=== PATIENT | male | born 1980 | race Caucasian/White ===

== ENCOUNTER 2016-12-16 09:10 | Emergency (ER) | payer OTHER ==
[~2016-12-16] VITALS: Ht 172.7 cm; Wt 81.6 kg
[~2016-12-16 09:10] MED LIST: HYDR-3580 PO
[2016-12-16 09:21] VITALS: BP 154/106; PULSE 113; RESP 18; TEMP 98.1; O2SAT 97
--- NOTE | 2016-12-16 10:05 | PD ---
HPI Chief Complaint: Musculoskeletal Complaint Time Seen by Provider: 09:54 Travel History International Travel<30 days: No Contact w/Intl Traveler<30days: No Traveled to known affect area: No History of Present Illness HPI This 36-year-old male is complaining of pain in his left knee. He said the pain started several days ago and was relatively mild. It has become progressively worse. There is no history of direct trauma. There is been no fever or chills. He has no history of gout. He has been able to walk, but certain activities are extremely painful. The pain seems to be greatest at the tibial tubercle and goes to either side of the names. He has not been on any antibiotics recently PFSH Past Medical History Medical History: Denies Significant Hx Influenza Vaccination: No Social History Alcohol Use: Yes (soc) Tobacco Use: Yes (dip) Substance Use: No Allergies-Medications (Allergen,Severity, Reaction): Coded Allergies: No Known Allergies (Unverified , 09/04/14) Reported Meds & Prescriptions Reported Meds & Active Scripts Active No Active Prescriptions or Reported Medications Review of Systems General / Constitutional: No: Fever, Chills Eyes: No: Diploplia Cardiovascular: No: Chest Pain or Discomfort Respiratory: No: Cough Gastrointestinal: No: Nausea, Vomiting Genitourinary: No: Frequency Musculoskeletal: Positive: Myalgias, Arthralgias Physical Exam Narrative GENERAL: Well-developed male SKIN: Focused skin assessment warm/dry. HEAD: Atraumatic. Normocephalic. MUSCULOSKELETAL: No obvious deformities. No clubbing. No cyanosis. No edema. See medication the knee does not reveal any erythema or swelling. There is well localized tenderness over the tibial tubercle. He is able to flex and extend NEUROLOGICAL: Awake and alert. No obvious cranial nerve deficits. Motor grossly within normal limits. Normal speech. PSYCHIATRIC: Appropriate mood and affect; insight and judgment normal. Data Data Last Documented VS Vital Signs Date Time Temp Pulse Resp B/P Pulse Ox O2 Delivery O2 Flow Rate FiO2 12/16/16 09:21 98.1 113 18 154/106 97 Orders Ketorolac Inj (Toradol Inj) (12/16/16 10:15) Knee, Complete (4vws) (12/16/16 10:03) MDM Medical Decision Making Medical Screen Exam Complete: Yes Emergency Medical Condition: Yes Medical Record Reviewed: Yes Differential Diagnosis Differential includes contusion, arthritis, tendinopathy. Narrative Course Site of pain is at the tibial tubercle. X-ray of the knee shows some abnormal calcification in this area. This may represent tendinopathy or avulsion fracture. I discussed the case with orthopedics said they recommend knee immobilizer and partial weightbearing. Office follow-up. Ibuprofen as needed Diagnosis Primary Impression: Tendinopathy Departure Forms: School Release, Tests/Procedures, Work Release Enter return to work date: Dec 19, 2016 Scripts No Active Prescriptions or Reported Meds Disposition: 01 DISCHARGE HOME Condition: Stable Vin Barnett MD Dec 16, 2016 10:05
[2016-12-16] MEDS ORDERED: KETOROLAC TROMETHAMINE 60 MG/2 ML (IM) VIAL IM ONE (10:15)
--- NOTE | 2016-12-16 11:24 | RADRPT ---
EXAM DATE/TIME: 12/16/2016 10:15 [facility] COMPARISON: No previous studies available for comparison. INDICATIONS : Left knee pain, twisted leg while moving in bed. MEDICAL HISTORY : None. SURGICAL HISTORY : None. ENCOUNTER: Initial ACUITY: 1 day PAIN SCORE: 9/10 LOCATION: Left Knee FINDINGS: Four view examination of the left knee demonstrates no evidence of fracture or dislocation. Bony min eralization is normal. The articular surfaces are intact. The suprapatellar soft tissues have a nor mal configuration. CONCLUSION: No acute disease. Les Saldana MD on December 16, 2016 at 11:22 Board Certified Radiologist. This report was verified electronically.
== END 2016-12-16 12:11 | disposition home or self-care (01) ==
LOC: PHEFT 09:10
DX: M67.962 Unspecified disorder of synovium and tendon, left lower leg (principal); R93.6 Abnormal findings on diagnostic imaging of limbs; Z72.0 Tobacco use
CPT/HCPCS: 73564; 96372; 99284; E0113; J1885; L1830

== ENCOUNTER 2017-02-04 09:20 | Emergency (ER) | payer OTHER ==
[~2017-02-04] VITALS: Ht 172.7 cm; Wt 79.5 kg
[2017-02-04 09:21] VITALS: BP 139/95; PULSE 99; RESP 20; TEMP 98.5; O2SAT 98
[2017-02-04] MEDS ORDERED: LISI20TA PO (09:38)
--- NOTE | 2017-02-04 09:38 | PD ---
HPI Chief Complaint: Injury Time Seen by Provider: 09:30 Travel History International Travel<30 days: No Contact w/Intl Traveler<30days: No Traveled to known affect area: No History of Present Illness HPI Patient is a 36-year-old male who presents to emergency room with complaints of acute on chronic left knee pain. Patient reports that he injured his knee 3 months ago, that since then, he has been having increased pain to his left knee. Reports that he has flareup of his left knee pain starting 4 days ago, denies any trauma or fall. Patient reports that he is following up with orthopedic surgeon, reports that the last time this happened, he had a steroid injection to his knee which seemed to help the symptoms. He did call orthopedic surgery today, since they could not get him into the office for appointment, told him to come to the emergency room for evaluation. Patient with no fevers or chills, reports acute on chronic pain. PFSH Past Medical History Hypertension: Yes ?: Not Past Surgical History Surgical History: No Previous Surgery Social History Alcohol Use: Yes (soc) Tobacco Use: Yes (dip) Substance Use: No Allergies-Medications (Allergen,Severity, Reaction): Coded Allergies: No Known Allergies (Unverified , 09/04/14) Reported Meds & Prescriptions Reported Meds & Active Scripts Active Reported Lisinopril-Hctz 20-12.5 Mg Tab 1 Tab PO DAILY Review of Systems General / Constitutional: No: Fever Eyes: No: Visual changes HENT: No: Headaches Cardiovascular: No: Chest Pain or Discomfort Respiratory: No: Shortness of Breath Gastrointestinal: No: Abdominal Pain Genitourinary: No: Dysuria Musculoskeletal: Positive: Limited ROM (left knee), Pain (left knee) Skin: No Rash Neurologic: No: Weakness Psychiatric: No: Depression Endocrine: No: Polydipsia Hematologic/Lymphatic: No: Easy Bruising Physical Exam Narrative GENERAL: Well-nourished, well-developed patient. SKIN: Focused skin assessment warm/dry. HEAD: Normocephalic. EYES: No scleral icterus. No injection or drainage. NECK: Supple, trachea midline. No JVD or lymphadenopathy. CARDIOVASCULAR: Regular rate and rhythm without murmurs, gallops, or rubs. RESPIRATORY: Breath sounds equal bilaterally. No accessory muscle use. GASTROINTESTINAL: Abdomen soft, non-tender, nondistended. MUSCULOSKELETAL: No cyanosis RLE: normal exam LLE: Patient with pain with range of motion to the left knee, mild swelling and edema around left knee, no redness or cellulitis, no obvious open fracture, pulses intact, neurovascular intact BACK: Nontender without obvious deformity. No CVA tenderness. Data Data Last Documented VS Vital Signs Date Time Temp Pulse Resp B/P (MAP) Pulse Ox O2 Delivery O2 Flow Rate FiO2 02/04/17 11:05 17 02/04/17 10:19 81 142/80 (100) 100 Room Air 02/04/17 09:21 98.5 Orders Orders Knee, Ltd (1 Or 2vws) (02/04/17 ) Ketorolac Inj (Toradol Inj) (02/04/17 09:45) Hydromorphone Pf Inj (Dilaudid Pf Inj) (02/04/17 09:45) Ice / Cold Pack PRN (02/04/17 09:42) Crutches (02/04/17 10:35) MDM Medical Decision Making Medical Screen Exam Complete: Yes Emergency Medical Condition: Yes Medical Record Reviewed: Yes Interpretation(s) Vital Signs Date Time Temp Pulse Resp B/P (MAP) Pulse Ox O2 Delivery O2 Flow Rate FiO2 02/04/17 09:21 98.5 99 20 139/95 (110) 98 Room Air Differential Diagnosis acute on chronic left knee pain Narrative Course 36-year-old male who presents to emergency room with acute on chronic left knee pain. Plan to x-ray his left knee. Patient uncomfortable on exam, will administer IM dose of opiods as well as NSAIDS Last Impressions Knee X-Ray 02/04/17 0000 Signed Impressions: Service Date/Time: January 09:50 - CONCLUSION: Fragmentation of the tibial tubercle at the patellar tendon insertion site. Associated soft tissue edema. Differential diagnosis includes acute trauma, infection, and old Lj-Schlatter disease. Rajan Martinez MD Patient feeling much better at this time. Patient with known fragmentation of the tibial tubercle at the patellar tendon insertion site. He will follow-up with orthopedic surgery and will return to emergency as needed Diagnosis Primary Impression: Knee pain, left Qualified Codes: M25.562 - Pain in left knee Patient Instructions: General Instructions, Narcotic given in the ED Departure Forms: Tests/Procedures, Work Release Enter return to work date: Feb 08, 2017 Special Instructions: No heavy lifting or exertional activities until you are seen and cleared by your orthopedic surgeon Med/Other Pt SpecificInfo: Prescription(s) given Scripts Oxycodone-Acetaminophen (Percocet) 5-325 mg Tab 1-2 TAB PO Q6H Y for PAIN, #12 TAB 0 Refills Prov: Lucía Berry DO 02/04/17 Disposition: 01 DISCHARGE HOME Condition: Stable Lucía Berry DO Feb 04, 2017 09:38
[2017-02-04] MEDS ORDERED: KETOROLAC TROMETHAMINE 60 MG/2 ML (IM) VIAL IM ONE (09:45)
[2017-02-04] MEDS ORDERED: HYDROmorphone HCL PF 1 MG/ML VIAL IM ONE (09:45)
[2017-02-04 10:19] VITALS: BP 142/80; PULSE 81; RESP 17; O2SAT 100
--- NOTE | 2017-02-04 10:26 | RADRPT ---
EXAM DATE/TIME: 02/04/2017 09:50 [facility] COMPARISON: No previous studies available for comparison. INDICATIONS : Left knee pain, denies injury MEDICAL HISTORY : None. SURGICAL HISTORY : None. ENCOUNTER: Initial ACUITY: 4 - 6 days PAIN SCORE: 10/10 LOCATION: Left Knee FINDINGS: 2 views of the left knee. There is fragmentation of the tibial tubercle with overlying soft tissue ed cristino. Bone alignment within normal limits. No evidence of joint narrowing. No evidence of joint effusi on. CONCLUSION: Fragmentation of the tibial tubercle at the patellar tendon insertion site. Associated soft tissue ed cristino. Differential diagnosis includes acute trauma, infection, and old Lj-Schlatter disease. Rajan Martinez MD on February 04, 2017 at 10:20 Board Certified Radiologist. This report was verified electronically.
[2017-02-04 11:05] VITALS: RESP 17
[2017-02-04] MEDS ORDERED: PERC5TAB12 PO (11:44)
[2017-02-04] MEDS ORDERED: IBUP-232 PO (11:46)
== END 2017-02-04 12:14 | disposition home or self-care (01) ==
LOC: NEPD 09:20
DX: M25.562 Pain in left knee (principal); G89.29 Other chronic pain; I10 Essential (primary) hypertension; Z72.0 Tobacco use
CPT/HCPCS: 73560; 96372; 99284; E0113; J1170; J1885

== ENCOUNTER 2017-11-30 01:26 | Inpatient (IN) ==
--- NOTE | 2017-11-30 03:08 | ED ---
HPI General Chief Complaint: Chest Pain Stated Complaint: Cardiac Time Seen by Provider: 11/30/17 02:48 Source: patient Limitations: no limitations History of Present Illness HPI narrative: The patient is a 37 year old male who presents to the [facility] emergency department with a history of beginning to have chest tightness at 3 PM today. He reports that it has been constant although waxing and waning in severity. He reports that while his was driving him home from [place], he also had a syncopal episode. He became diaphoretic and then passed out. The patient reports that he woke up to his repeatedly tapping his shoulder. He is unsure how long the syncopal episode lasted. He denies any tongue biting or loss of bowel or bladder control. He reports that he has had intermittent shortness of breath. He reports that he has tingling sensations all over. He reports that prior to arrival again the pain became more severe in his chest around 1 AM. He reports that he has had one episode of nausea and vomiting associated with this. He denies having any prior history of coronary artery disease, DVT, or PE. He does have a history of hypertension and hyperlipidemia. On review of systems otherwise, the patient denies radiation of the chest pain, neck pain, abdominal pain, diarrhea, urinary symptoms, or other neurologic symptoms. Complete Quality Measures for STEMI Alert Patients Duration: constant (mildly constant) Pain location: left chest Quality: other (pushing sensation) Pain radiation: none Relieving factors: nothing Exacerbating factors: nothing Associated symptoms: nausea, vomiting (x1), diaphoresis, dyspnea, syncope and other (dizziness) Related Data Home Medications Medication Instructions Recorded Confirmed lisinopril-hydrochlorothiazide 1 tab PO DAILY 11/30/17 11/30/17 Allergies Allergy/AdvReac Type Severity Reaction Status Date / Time No Known Allergies Allergy Verified 11/30/17 01:34 Review of Systems ROS Unobtainable All other systems reviewed negative except as stated in HPI PMFSH History History Provided By: Patient Medical History Medical History HTN (hypertension) (Acute) Anxiety (Acute) Hyperlipidemia (Acute) Surgical History Surgical History S/P hernia repair (Acute) Family History Family History Other Family history non-contributory Social History Social History Substance History: No History of Abuse Second Hand Smoke Exposure: Yes Smoking Status: Current every day smoker Tobacco Type: Cigarettes and Smokeless Tobacco How Often Do You Have a Drink Containing Alcohol: 2 to 3 times a week Recent Travel in [facility] within the Last 8 Weeks: No Recent Out of Country Travel within the Last 8 Weeks: No Exam Const General: cooperative, no acute distress, well developed and anxious Nutritional Appearance: well nourished Orientation: alert, awake and oriented x3 HENMT Head: normocephalic and atraumatic Nose: no nasal discharge and no epistaxis Mouth: oral mucosae normal and moist mucous membranes Throat: posterior oropharynx normal Eyes Sclera: normal sclerae Pupils: PERRL Neck Neck: no meningeal signs, trachea midline and no JVD Resp Effort & Inspection: no use of accessory muscles Auscultation: clear to auscultation bilaterally Cardio Rate: regular rate Rhythm: regular rhythm Heart Sounds: no gallops, no murmurs and no rubs GI Inspection: non-distended Palpation: soft, no hepatosplenomegaly and nontender Auscultation: normal bowel sounds Back/Spine/Pelvis Back: no CVA tenderness Skin General: dry skin (warm) Neuro General: alert, awake and oriented x3 Cranial Nerves: other (No facial asymmetry.) Speech: speech normal Motor: strength 5/5 throughout and tremor (Slight tremulousness noted with active movements) Sensory Exam: no sensory deficits noted Extrem General: normal to inspection (No calf tenderness on palpation.), no clubbing, no cyanosis and no edema Psych Mood: congruent mood Affect: normal affect Judgment: judgment good Course Consultations Consultation #1: The patient's case including history, pertinent physical examination findings, and laboratory studies were discussed with Dr. Moreno . It was agreed that the patient would be admitted to the hospitalist service. Initial Documented Vital Signs Temperature 97.9 F 11/30/17 01:34 Pulse Rate 91 H 11/30/17 01:34 Respiratory Rate 18 11/30/17 01:34 Blood Pressure 160/96 H 11/30/17 01:34 Pulse Oximetry 98 11/30/17 01:34 Last Documented Vital Signs Temperature 98.0 F 11/30/17 16:00 Pulse Rate 89 11/30/17 17:21 Respiratory Rate 16 11/30/17 16:00 Blood Pressure 137/88 11/30/17 16:00 Pulse Oximetry 98 11/30/17 16:00 Medical Decision Making MDM Narrative Medical decision making narrative: During the course of the patient's emergency department visit, the patient's history, examination, and differential diagnosis were reviewed with the patient. The patient was placed on a youth nutritional monitor with oximetry and frequent blood pressure monitoring. The patient had IV access obtained and blood work sent for analysis. The diagnostic evaluation was started regarding the patient's chest pain and syncope The patient was initially provided normal saline 1 L IV fluid bolus. The patient was given aspirin 324 mg p.o. 1, nitroglycerin sublingual 1. Diagnostic studies are remarkable for a white count of 10.5, platelets 178 with 8.8 monocytes, hemoglobin within normal limits at 14.5, PT PTT unremarkable, d- dimer 0.25 decreasing likelihood of pulmonary embolism in this patient with no other significant risk factors. Chemistry is remarkable for troponin I of less than 0.02, sodium 125 which could certainly explain some of the patient's symptoms, elevated LFTs with an AST of 181, ALT 217 were noted, TSH was noted to be elevated at 5.93. Urine drug screen was negative, alcohol level 78. A chest x-ray showed no acute cardiopulmonary disease. The patient will be admitted to the hospitalist service for chest pain and hyponatremia with an episode of syncope. The patient's results were discussed with the patient, including the plan of care. I explained that further testing and/ or monitoring is indicated based on the patient's history, examination, and/ or laboratory findings. Therefore, I recommended admission for additional evaluation. The patient expressed understanding and was agreeable with this plan. The patient was admitted to the hospital in stable condition and sent to a bed under the care of the [facility] service. Differential Diagnosis Differential Diagnosis: Acute coronary syndrome, versus cardiac arrhythmia, versus orthostasis, versus vasovagal syncope, versus acid reflux, versus anxiety disorder, versus pulmonary embolism Medical Records Medical records reviewed: Yes I reviewed the patient's medical records. Lab Data Lab results reviewed: Yes I reviewed the patient's lab results. Result diagrams: 11/30/17 03:19 11/30/17 09:45 Lab Results 07/24/18 07/24/18 07/24/18 Range/Units 03:19 03:19 03:19 WBC 10.5 (4.0-11.0) th/mm3 RBC 4.55 (4.50-5.90) mil/mm3 Hgb 14.5 (13.0-17.0) gm/dL Hct 40.8 (39.0-51.0) % MCV 89.6 (80.0-100.0) fL MCH 31.9 (27.0-34.0) pg MCHC 35.6 (32.0-36.0) % RDW 13.3 (11.6-17.2) % Plt Count 178 (150-450) th/mm3 MPV 7.7 (7.0-11.0) fL Neut % (Auto) 60.5 (16.0-70.0) % Lymph % (Auto) 30.1 (9.0-44.0) % [place] % (Auto) 8.8 H (0.0-8.0) % Eos % (Auto) 0.2 (0.0-4.0) % Baso % (Auto) 0.4 (0.0-2.0) % Neut # (Auto) 6.3 (1.8-7.7) th/mm3 Lymph # (Auto) 3.2 (1.0-4.8) th/mm3 Dodge # (Auto) 0.9 (0.0-0.9) th/mm3 Eos # (Auto) 0.0 (0.0-0.4) th/mm3 Baso # (Auto) 0.0 (0.0-0.2) th/mm3 WBC Differential . Differential Comment Auto diff final PT (9.8-11.6) sec INR Ratio APTT (24.3-30.1) sec D-Dimer Quant (PE/DVT) 0.25 (0.00-0.50) mg/L FEU Sodium (136-145) meq/L Potassium (3.5-5.1) meq/L Chloride (98-107) meq/L Carbon Dioxide (21.0-32.0) meq/L Anion Gap (5-15) meq/L BUN (7-18) mg/dL Creatinine (0.60-1.30) mg/dL Estimated GFR (>89) mL/min Random Glucose (74-106) mg/dL Calcium (8.5-10.1) mg/dL Total Bilirubin (0.2-1.0) mg/dL AST (15-37) U/L ALT (12-78) U/L Alkaline Phosphatase (45-117) U/L Total Creatine Kinase (39-308) U/L CK-MB (CK-2) (0.5-3.6) ng/mL Troponin I (0.02-0.05) ng/mL Total Protein (6.4-8.2) g/dL Albumin (3.4-5.0) g/dL Lipase 451 H (73-393) U/L TSH (0.358-3.740) uIU/mL Free T4 (0.76-1.46) ng/dL Free T3 (2.18-3.98) pg/mL Urine Opiates Screen (Neg) Ur Barbiturates Screen (Neg) Ur Amphetamines Screen (Neg) U Benzodiazepines Scrn (Neg) Urine Cocaine Screen (Neg) U Cannabinoids Screen (Neg) Serum Alcohol (0-5) mg/dL 11/30/17 11/30/17 11/30/17 Range/Units 03:19 03:19 06:28 WBC (4.0-11.0) th/mm3 RBC (4.50-5.90) mil/mm3 Hgb (13.0-17.0) gm/dL Hct (39.0-51.0) % MCV (80.0-100.0) fL MCH (27.0-34.0) pg MCHC (32.0-36.0) % RDW (11.6-17.2) % Plt Count (150-450) th/mm3 MPV (7.0-11.0) fL Neut % (Auto) (16.0-70.0) % Lymph % (Auto) (9.0-44.0) % Dodge % (Auto) (0.0-8.0) % Eos % (Auto) (0.0-4.0) % Baso % (Auto) (0.0-2.0) % Neut # (Auto) (1.8-7.7) th/mm3 Lymph # (Auto) (1.0-4.8) th/mm3 Dodge # (Auto) (0.0-0.9) th/mm3 Eos # (Auto) (0.0-0.4) th/mm3 Baso # (Auto) (0.0-0.2) th/mm3 WBC Differential Differential Comment PT 10.7 (9.8-11.6) sec INR 1.1 Ratio APTT 23.1 L (24.3-30.1) sec D-Dimer Quant (PE/DVT) (0.00-0.50) mg/L FEU Sodium 125 L (136-145) meq/L Potassium 3.5 (3.5-5.1) meq/L Chloride 84 L (98-107) meq/L Carbon Dioxide 27.3 (21.0-32.0) meq/L Anion Gap 14 (5-15) meq/L BUN 8 (7-18) mg/dL Creatinine 0.95 (0.60-1.30) mg/dL Estimated GFR 88 L (>89) mL/min Random Glucose 93 (74-106) mg/dL Calcium 9.1 (8.5-10.1) mg/dL Total Bilirubin 1.4 H (0.2-1.0) mg/dL AST 181 H (15-37) U/L ALT 217 H (12-78) U/L Alkaline Phosphatase 79 (45-117) U/L Total Creatine Kinase 272 (39-308) U/L CK-MB (CK-2) 1.0 (0.5-3.6) ng/mL Troponin I Less than 0.02 L (0.02-0.05) ng/mL Total Protein 8.9 H (6.4-8.2) g/dL Albumin 4.3 (3.4-5.0) g/dL Lipase (73-393) U/L TSH 5.930 H (0.358-3.740) uIU/mL Free T4 1.07 (0.76-1.46) ng/dL Free T3 3.94 (2.18-3.98) pg/mL Urine Opiates Screen Neg (Neg) Ur Barbiturates Screen Neg (Neg) Ur Amphetamines Screen Neg (Neg) U Benzodiazepines Scrn Neg (Neg) Urine Cocaine Screen Neg (Neg) U Cannabinoids Screen Neg (Neg) Serum Alcohol 78 H (0-5) mg/dL 11/30/17 11/30/17 11/30/17 Range/Units 09:45 09:45 16:34 WBC (4.0-11.0) th/mm3 RBC (4.50-5.90) mil/mm3 Hgb (13.0-17.0) gm/dL Hct (39.0-51.0) % MCV (80.0-100.0) fL MCH (27.0-34.0) pg MCHC (32.0-36.0) % RDW (11.6-17.2) % Plt Count (150-450) th/mm3 MPV (7.0-11.0) fL Neut % (Auto) (16.0-70.0) % Lymph % (Auto) (9.0-44.0) % Dodge % (Auto) (0.0-8.0) % Eos % (Auto) (0.0-4.0) % Baso % (Auto) (0.0-2.0) % Neut # (Auto) (1.8-7.7) th/mm3 Lymph # (Auto) (1.0-4.8) th/mm3 Dodge # (Auto) (0.0-0.9) th/mm3 Eos # (Auto) (0.0-0.4) th/mm3 Baso # (Auto) (0.0-0.2) th/mm3 WBC Differential Differential Comment PT (9.8-11.6) sec INR Ratio APTT (24.3-30.1) sec D-Dimer Quant (PE/DVT) (0.00-0.50) mg/L FEU Sodium 133 L (136-145) meq/L Potassium 3.9 (3.5-5.1) meq/L Chloride 94 L D (98-107) meq/L Carbon Dioxide 27.4 (21.0-32.0) meq/L Anion Gap 12 (5-15) meq/L BUN 9 (7-18) mg/dL Creatinine 1.02 (0.60-1.30) mg/dL Estimated GFR 81 L (>89) mL/min Random Glucose 97 (74-106) mg/dL Calcium 8.8 (8.5-10.1) mg/dL Total Bilirubin (0.2-1.0) mg/dL AST (15-37) U/L ALT (12-78) U/L Alkaline Phosphatase (45-117) U/L Total Creatine Kinase 258 251 (39-308) U/L CK-MB (CK-2) (0.5-3.6) ng/mL Troponin I Less than 0.02 L Less than 0.02 L (0.02-0.05) ng/mL Total Protein (6.4-8.2) g/dL Albumin (3.4-5.0) g/dL Lipase (73-393) U/L TSH (0.358-3.740) uIU/mL Free T4 (0.76-1.46) ng/dL Free T3 (2.18-3.98) pg/mL Urine Opiates Screen (Neg) Ur Barbiturates Screen (Neg) Ur Amphetamines Screen (Neg) U Benzodiazepines Scrn (Neg) Urine Cocaine Screen (Neg) U Cannabinoids Screen (Neg) Serum Alcohol (0-5) mg/dL Imaging Data Radiologist's impression: Carotid Doppler Study 11/30/17 00:00 CONCLUSION: 1. Minimal plaque with no evidence of stenosis in the internal carotid arteries. 2. Mild elevation of the right external carotid artery velocity of questionable clinical significance. Myocardial Perfusion Scan Nuc Med 11/30/17 00:00 CONCLUSION: 1. Normal wall motion and calculated ejection fraction. 2. No fixed or reversible wall defect to suggest ischemia or infarction. Chest X-Ray 11/30/17 02:56 CONCLUSION: No acute cardiopulmonary process. ECG Data Attestation: I personally reviewed and interpreted this ECG as follows: Interpretation: The patient had an EKG done on arrival that shows a sinus rhythm heart rate of 94, QRS duration 110 ms, QTC [address] segment elevation or depression. T waves are inverted in V1. Discharge Plan Discharge Disposition Patient Disposition: 30 Still Patient Discharge Details Diagnosis: Syncope, Hyponatremia, Chest pain, rule out acute myocardial infarction Physicians Team ED Provider: Ashly Schwartz Primary Care Provider: Primary Care Amanda Jennings Attending Provider: Fadi Singleton Status ED Status: Left Department Discharge Information Discharge Date/Time: 11/30/17 14:03
[2017-11-30 03:36] LABS: Baso % (Auto) 0.4 % (0.0-2.0); Eos % (Auto) 0.2 % (0.0-4.0); Hematocrit 40.8 % (39.0-51.0); Hemoglobin 14.5 gm/dL (13.0-17.0); Lymph # (Auto) 3.2 th/mm3 (1.0-4.8); Lymph % (Auto) 30.1 % (9.0-44.0); Mean Corpuscular HGB Conc 35.6 % (32.0-36.0); Mean Corpuscular Hemoglobin 31.9 pg (27.0-34.0); Mean Corpuscular Volume 89.6 fL (80.0-100.0); Mean Platelet Volume 7.7 fL (7.0-11.0); Mono # (Auto) 0.9 th/mm3 (0.0-0.9); Mono % (Auto) 8.8 % (0.0-8.0); Neut # (Auto) 6.3 th/mm3 (1.8-7.7); Neut % (Auto) 60.5 % (16.0-70.0); Platelet Count 178 th/mm3 (150-450); Red Blood Count 4.55 mil/mm3 (4.50-5.90); Red Cell Distribution Width 13.3 % (11.6-17.2); White Blood Count 10.5 th/mm3 (4.0-11.0)
[2017-11-30 03:50] LABS: Activated Partial Thrombo Time 23.1 sec (24.3-30.1); INR 1.1 Ratio; Prothrombin Time 10.7 sec (9.8-11.6)
[2017-11-30 03:56] LABS: Alanine Aminotransferase 217 U/L (12-78); Albumin 4.3 g/dL (3.4-5.0); Anion Gap 14 meq/L (5-15); Aspartate Aminotransferase 181 U/L (15-37); Blood Urea Nitrogen 8 mg/dL (7-18); Calcium 9.1 mg/dL (8.5-10.1); Carbon Dioxide 27.3 meq/L (21.0-32.0); Chloride 84 meq/L (98-107); Glomerular Filtration Rate 88 mL/min (>89); Glucose,Random 93 mg/dL (74-106); Potassium 3.5 meq/L (3.5-5.1); Sodium 125 meq/L (136-145)
[2017-11-30 04:00] LABS: Alkaline Phosphatase 79 U/L (45-117); Creatine Kinase 272 U/L (39-308); Total Protein 8.9 g/dL (6.4-8.2)
--- NOTE | 2017-11-30 04:03 | XR ---
EXAM DATE: 11/30/2017 3:29 AM EDT AGE/SEX: 37 years / Male INDICATIONS: Chest pain. CLINICAL DATA: This is the patient's initial encounter. Patient reports that signs and symptoms have been present for 1 day and indicates a pain score of 5/10. MEDICAL/SURGICAL HISTORY: . High blood pressure. None. COMPARISON: No prior exams available for comparison. FINDINGS: A single AP view of the chest demonstrates the lungs to be symmetrically aerated without evidence of mass, infiltrate or effusion. The cardiomediastinal contours are unremarkable. Osseous structures a re intact. CONCLUSION: No acute cardiopulmonary process. Electronically signed by: Marv Mandel MD 11/30/2017 4:02 AM EDT
[2017-11-30] MEDS ORDERED: Sod Chloride 0.9% Inj 1,000 ML IV.SIG ONE (04:28)
[2017-11-30 04:56] LABS: Alcohol 78 mg/dL (0-5)
[2017-11-30] MEDS ORDERED: Bisacodyl 10 MG Supp RECTAL PRN (05:24)
[2017-11-30] MEDS ORDERED: Temazepam 15 MG Capsule PO PRN (05:24)
[2017-11-30] MEDS ORDERED: Acetaminophen 325 MG Tablet PO PRN (05:24)
[2017-11-30 05:49] LABS: Free T4 (Free Thyroxine) 1.07 ng/dL (0.76-1.46); Triiodothyronine (T3) Free 3.94 pg/mL (2.18-3.98)
[2017-11-30] MEDS: Sod Chloride 0.9% Inj 1,000 ML IV.CONT SCH ×2 (06:02→17:10)
[2017-11-30 06:44] LABS: Amphetamine Screen,Urine Neg (Neg); Barbiturate Screen,Urine Neg (Neg); Cannabinoid Screen,Urine Neg (Neg); Cocaine Screen,Urine Neg (Neg)
[2017-11-30 06:45] LABS: Opiate Screen,Urine Neg (Neg)
--- NOTE | 2017-11-30 09:24 | US ---
EXAM DATE: 11/30/2017 8:59 AM EDT AGE/SEX: 37 years / Male INDICATIONS: Syncope. CLINICAL DATA: This is the patient's initial encounter. Patient reports that signs and symptoms have been present for 1 day and indicates a pain score of 4/10. MEDICAL/SURGICAL HISTORY: Hypertension. Anxiety. Hyperlipidemia. . Hernia repair. COMPARISON: No prior exams available for comparison. VELOCITY PARAMETERS: ICA/CCA Ratio: Right 0.8 , Left 0.5 ICA: Right 71 cm/sec, Left 59 cm/sec CCA: Right 94 cm/sec, Left 114 cm/sec ECA: Right 145 cm/sec, Left 96 cm/sec Vertebral: Right 38 cm/sec antegrade, Left 40 cm/sec antegrade FINDINGS: Right Carotid: Minimal plaque is present..The waveforms are within normal limits. Left Carotid: Minimal plaque is present.. The waveforms are within normal limits. Other: None. CONCLUSION: 1. Minimal plaque with no evidence of stenosis in the internal carotid arteries. 2. Mild elevation of the right external carotid artery velocity of questionable clinical significanc e. Electronically signed by: Jarrett Shaw MD 11/30/2017 9:22 AM EDT
--- NOTE | 2017-11-30 10:01 | ECG ---
Date Performed: 11/30/2017 Time Performed: 01:31:36 PTAGE: 37 years EKG: Sinus rhythm NORMAL ECG INTERPRETATION BASED ON A DEFAULT AGE OF 38 YEARS NO PREVIOUS TRACING DOCTOR: Micheal Sandhu Interpretating Date/Time 11/30/2017 10:00:34
[2017-11-30 11:04] LABS: Carbon Dioxide 27.4 meq/L (21.0-32.0); Potassium 3.9 meq/L (3.5-5.1)
[2017-11-30 11:05] LABS: Calcium 8.8 mg/dL (8.5-10.1)
[2017-11-30 11:08] LABS: Creatine Kinase 258 U/L (39-308)
--- NOTE | 2017-11-30 11:24 | ECG ---
Date Performed: 11/30/2017 Time Performed: 09:50:16 PTAGE: 37 years EKG: Sinus rhythm NORMAL ECG PREVIOUS TRACING : 11/30/2017 01.31 DOCTOR: Micheal Sandhu Interpretating Date/Time 11/30/2017 11:23:57
[2017-11-30] MEDS: Senna/Docusate Sodium 8.6/50 MG Tablet PO SCH ×2 (11:51→20:47)
[2017-11-30] MEDS ORDERED: LORazepam 1 MG Tablet PO PRN (12:35)
[2017-11-30] MEDS ORDERED: Haloperidol Inj 5 MG/ML Ampul IV.PUSH PRN (12:35)
--- NOTE | 2017-11-30 12:53 | P.HP ---
History of Present Illness Primary Care Physician: No Primary Care Physician History of Present Illness: This is a 37-year-old male who was brought into the emergency department because of chest tightness. Started last night around 7 pm when he passed out in the car. His was driving home from their son's birthday green party. Suddenly he became diaphoretic and passed out duration not known. No confusion, tongue biting or incontinence but became nauseous and vomited once. He also developed mild constant chest tightness without radiation. Denies shortness of breath, leg pain and swelling. He then went to bed but continued to have chest pain and diaphoresis. He also felt his heart racing and was weak. He was also starting to feel numb. Persistence of chest discomfort prompted him to present to the emergency room at 1 AM. Denies history of CAD, DVT or PE. He exercises rides his bike 15 minutes at a time without any symptoms. States he cannot run because of knee tendinitis. At this time, he feels anxious and tremulous. Denies hallucinations. Initially states he drinks alcohol socially but when he was told about abnormal liver function tests he admits he drinks 2 beers almost every day. All other systems reviewed negative Review of Systems All other systems reviewed negative except as stated in HPI PMFSH - History History Provided By: Patient - Medical History Medical History: Medical History (Last Updated 11/30/17 @ 12:48 by Fadi Singleton MD) HTN (hypertension) Anxiety - Surgical History Surgical History: Surgical History (Last Reviewed 11/30/17 @ 04:38 by Ashly Schwartz MD) S/P hernia repair - Family History Family History: Family History (Last Updated 11/30/17 @ 12:49 by Fadi Singleton MD) Other Family history non-contributory - Tobacco History Second Hand Smoke Exposure: Yes Tobacco Use In Past 30 Days: Yes Smoking Status: Current every day smoker Tobacco Type: Cigarettes, Smokeless Tobacco - Alcohol History How Often Do You Have a Drink Containing Alcohol: 2 to 3 times a week - Substance Use History Substance History: No History of Abuse - Travel History Recent Travel in the [facility] Within the Last 8 Weeks: No Recent Travel Out of the Country Within the Last 8 Weeks: No - Immunization History Tetanus Immunization: <5 Years Hx Influenza Vaccine This Season: No Medications and Allergies Active Medications: Active Medications Acetaminophen (Tylenol) 650 mg PO Q4H PRN PRN Reason: Temp > 100.4 Al Hydroxide/Mg Hydroxide (Milk Of Magnesia Liq) 30 ml PO Q12H PRN PRN Reason: Mild Constipation Bisacodyl (Dulcolax Supp) 10 mg RECTAL DAILY PRN PRN Reason: SEVERE CONSITIPATION Sodium Chloride (Ns Inj) 1,000 mls @ 100 mls/hr IV.CONT .Q10H [facility] Last Admin: 11/30/17 06:02 Dose: 100 mls/hr Lactulose (Lactulose Liq) 30 ml PO DAILY PRN PRN Reason: SEVERE CONSITIPATION Ondansetron HCl (Zofran Odt) 4 mg PO Q6H PRN PRN Reason: NAUSEA OR VOMITING Senna/Docusate Sodium (Kenia-Colace) 1 tab PO BID [facility] Last Admin: 11/30/17 11:51 Dose: Not Given Sennosides (Senokot) 17.2 mg PO Q12H PRN PRN Reason: Moderate Constipation Sodium Chloride (Ns Flush) 2 ml IV.FLUSH UNSCH PRN PRN Reason: FLUSH AFTER USING IV ACCESS Temazepam (Restoril) 15 mg PO HS PRN PRN Reason: INSOMNIA Allergies Allergy/AdvReac Type Severity Reaction Status Date / Time No Known Allergies Allergy Verified 11/30/17 01:34 Home Medications Medication Instructions Recorded Confirmed Type No Known Home Medications 11/30/17 11/30/17 History Exam Vital signs: Vital Signs 11/30/17 01:34 11/30/17 03:13 11/30/17 03:27 Temperature 97.9 F Pulse Rate 91 H 78 Respiratory Rate 18 20 Blood Pressure 160/96 H 159/94 H Pulse Oximetry 98 96 96 11/30/17 04:52 11/30/17 05:20 11/30/17 07:26 Temperature Pulse Rate 79 72 81 Respiratory Rate 18 20 18 Blood Pressure 142/84 H 143/76 H 163/89 H Pulse Oximetry 96 98 Intake & Output 11/29/17 11/30/17 11/30/17 18:59 06:59 18:59 Intake Total 1000 / 1000 Balance 1000 / 1000 Weight 79.379 kg Intake: IV 1000 / 1000 NS Inj 1,000 ML @ Wide Open IV. 1000 / 1000 SIG BOLUS ONE Rx#:[id number] Narrative: GENERAL: Well developed and well nourished. In no distress SKIN: Warm and dry. HEAD: Atraumatic. Normocephalic. EYES: Pupils equal and round. No scleral icterus. No injection or drainage. ENT: No nasal bleeding or discharge. Mucous membranes pink and moist. NECK: Trachea midline. No JVD. CARDIOVASCULAR: Regular rate and rhythm. RESPIRATORY: No accessory muscle use. Clear to auscultation. Breath sounds equal bilaterally. GASTROINTESTINAL: Abdomen soft, non-tender, nondistended. MUSCULOSKELETAL: Extremities without clubbing, cyanosis, or edema. No obvious deformities. NEUROLOGICAL: Awake and alert. No obvious cranial nerve deficits. Motor grossly within normal limits. Five out of 5 muscle strength in the arms and legs. Normal speech. Tremors noted PSYCHIATRIC: Anxious Results - Labs CBC & Chem 7: 11/30/17 03:19 11/30/17 09:45 Labs: Laboratory Results - last 24 hr 11/30/17 11/30/17 11/30/17 03:19 03:19 03:19 WBC 10.5 RBC 4.55 Hgb 14.5 Hct 40.8 MCV 89.6 MCH 31.9 MCHC 35.6 RDW 13.3 Plt Count 178 MPV 7.7 Neut % (Auto) 60.5 Lymph % (Auto) 30.1 [place] % (Auto) 8.8 H Eos % (Auto) 0.2 Baso % (Auto) 0.4 Neut # (Auto) 6.3 Lymph # (Auto) 3.2 [place] # (Auto) 0.9 Eos # (Auto) 0.0 Baso # (Auto) 0.0 WBC Differential . Differential Comment Auto diff final PT INR APTT D-Dimer Quant (PE/DVT) 0.25 Sodium Potassium Chloride Carbon Dioxide Anion Gap BUN Creatinine Estimated GFR Random Glucose Calcium Total Bilirubin AST ALT Alkaline Phosphatase Total Creatine Kinase CK-MB (CK-2) Troponin I Total Protein Albumin Lipase 451 H TSH Free T4 Free T3 Urine Opiates Screen Ur Barbiturates Screen Ur Amphetamines Screen U Benzodiazepines Scrn Urine Cocaine Screen U Cannabinoids Screen Serum Alcohol 11/30/17 11/30/17 11/30/17 03:19 03:19 06:28 WBC RBC Hgb Hct MCV MCH MCHC RDW Plt Count MPV Neut % (Auto) Lymph % (Auto) [place] % (Auto) Eos % (Auto) Baso % (Auto) Neut # (Auto) Lymph # (Auto) [place] # (Auto) Eos # (Auto) Baso # (Auto) WBC Differential Differential Comment PT 10.7 INR 1.1 APTT 23.1 L D-Dimer Quant (PE/DVT) Sodium 125 L Potassium 3.5 Chloride 84 L Carbon Dioxide 27.3 Anion Gap 14 BUN 8 Creatinine 0.95 Estimated GFR 88 L Random Glucose 93 Calcium 9.1 Total Bilirubin 1.4 H AST 181 H ALT 217 H Alkaline Phosphatase 79 Total Creatine Kinase 272 CK-MB (CK-2) 1.0 Troponin I Less than 0.02 L Total Protein 8.9 H Albumin 4.3 Lipase TSH 5.930 H Free T4 1.07 Free T3 3.94 Urine Opiates Screen Neg Ur Barbiturates Screen Neg Ur Amphetamines Screen Neg U Benzodiazepines Scrn Neg Urine Cocaine Screen Neg U Cannabinoids Screen Neg Serum Alcohol 78 H 11/30/17 11/30/17 09:45 09:45 WBC RBC Hgb Hct MCV MCH MCHC RDW Plt Count MPV Neut % (Auto) Lymph % (Auto) [place] % (Auto) Eos % (Auto) Baso % (Auto) Neut # (Auto) Lymph # (Auto) [place] # (Auto) Eos # (Auto) Baso # (Auto) WBC Differential Differential Comment PT INR APTT D-Dimer Quant (PE/DVT) Sodium 133 L Potassium 3.9 Chloride 94 L D Carbon Dioxide 27.4 Anion Gap 12 BUN 9 Creatinine 1.02 Estimated GFR 81 L Random Glucose 97 Calcium 8.8 Total Bilirubin AST ALT Alkaline Phosphatase Total Creatine Kinase 258 CK-MB (CK-2) Troponin I Less than 0.02 L Total Protein Albumin Lipase TSH Free T4 Free T3 Urine Opiates Screen Ur Barbiturates Screen Ur Amphetamines Screen U Benzodiazepines Scrn Urine Cocaine Screen U Cannabinoids Screen Serum Alcohol - Imaging Impressions Carotid Doppler Study 11/30/17 00:00 CONCLUSION: 1. Minimal plaque with no evidence of stenosis in the internal carotid arteries. 2. Mild elevation of the right external carotid artery velocity of questionable clinical significance. Chest X-Ray 11/30/17 02:56 CONCLUSION: No acute cardiopulmonary process. Caprini VTE Risk Assessment Caprini VTE Risk Assessment: No/Low Risk (score <= 1) Caprini Risk Assessment Model: Point Value = 1 Point Value = 2 Point Value = 3 Point Value = 5 Age 41-60 Minor surgery BMI > 25 kg/m2 Swollen legs Varicose veins or History of unexplained or recurrent spontaneous Oral contraceptives or hormone replacement Sepsis (< 1 month) Serious lung disease, including pneumonia (< 1 month) Abnormal pulmonary function Acute myocardial infarction Congestive heart failure (< 1 month) History of inflammatory bowel disease Medical patient at bed rest Age 61-74 Arthroscopic surgery Major open surgery (> 45 min) Laparoscopic surgery (> 45 min) Malignancy Confined to bed (> 72 hours) Immobilizing plaster cast Central venous access Age >= 75 History of VTE Family history of VTE Factor V Leiden Prothrombin [id number] Lupus anticoagulant Anticardiolipin antibodies Elevated serum homocysteine Heparin-induced thrombocytopenia Other congenital or acquired thrombophilia Stroke (< 1 month) Elective arthroplasty Hip, pelvis, or leg fracture Acute spinal cord injury (< 1 month) Prophylaxis Regimen: Total Risk Factor Score Risk Level Prophylaxis Regimen 0-1 Low Early ambulation 2 Moderate Order ONE of the following: *Sequential Compression Device (SCD) *Heparin 5000 units SQ BID 3-4 Higher Order ONE of the following medications: *Heparin 5000 units SQ TID *Enoxaparin/Lovenox 40 mg SQ daily (WT < 150 kg, CrCl > 30 mL/min) *Enoxaparin/Lovenox 30 mg SQ daily (WT < 150 kg, CrCl > 10-29 mL/min) *Enoxaparin/Lovenox 30 mg SQ BID (WT < 150 kg, CrCl > 30 mL/min) AND/OR *Sequential Compression Device (SCD) 5 or more Highest Order ONE of the following medications: *Heparin 5000 units SQ TID (Preferred with Epidurals) *Enoxaparin/Lovenox 40 mg SQ daily (WT < 150 kg, CrCl > 30 mL/min) *Enoxaparin/Lovenox 30 mg SQ daily (WT < 150 kg, CrCl > 10-29 mL/min) *Enoxaparin/Lovenox 30 mg SQ BID (WT < 150 kg, CrCl > 30 mL/min) AND *Sequential Compression Device (SCD) Assessment and Plan - Plan This is a 37-year-old male who was brought into the emergency department because of chest tightness. Started last night around 7 pm when he passed out in the car. His was driving home from their son's birthday green party. Suddenly he became diaphoretic and passed out duration not known. No confusion, tongue biting or incontinence but became nauseous and vomited once. He also developed mild constant chest tightness without radiation. Denies shortness of breath, leg pain and swelling. He then went to bed but continued to have chest pain and diaphoresis. He also felt his heart racing and was weak. He was also starting to feel numb. Persistence of chest discomfort prompted him to present to the emergency room at 1 AM. Syncope likely from alcohol intoxication. Patient with alcohol level of 78 with last intake 8 hrs prior. he passed out one hour after imbibing. At this time he is neurologically intact. Continue to monitor on telemetry, neuro checks and follow-up echocardiogram. Carotid ultrasound was unremarkable. CP this is atypical. He is ruling out for NV. EKG tracing interpreted by me with sinus rhythm with no acute ST-T changes. He received aspirin because of risk factors he will undergo stress test. Elevated lipase likely reason for chest pain. He denies chest pain at this time. No abdominal tenderness. Will monitor alcohol abuse with hyponatremia and abnormal liver function tests. Patient has been counseled. CIWA protocol. States he will seek help outpatient. DVT prophylaxis with SCD Discharge Planning: home in 1-2 days
[2017-11-30] MEDS ORDERED: Regadenoson Inj 0.4 MG/5 ML Syringe IV.PUSH ONE (15:18)
--- NOTE | 2017-11-30 16:36 | NM ---
EXAM DATE: 11/30/2017 4:30 PM EDT AGE/SEX: 37 years / Male INDICATIONS:Angina. . Mid chest pain with a syncopal episode. CLINICAL DATA: This is the patient's initial encounter. Patient reports that signs and symptoms have been present for 1 day and indicates a pain score of 8/10. MEDICAL/SURGICAL HISTORY: Hypertension. Inguinal hernia repair. COMPARISON: No prior exams available for comparison. No external comparison. DOSE: 8.2 mCi Tc 99m Myoview at rest 27.5 mCi [id number] at stress 0.4 mg Lexiscan STRESS SYMPTOMS: None. EJECTION FRACTION: >70 % TECHNIQUE: The patient underwent pharmacologic stress with infusion of prescribed dose. Continuous ECG tracing was monitored during stress. Gated SPECT imaging was performed after stress and conventi onal SPECT imaging was performed at rest. The examination was performed on a SPECT/CT scanner, both attenuation and non-corrected datasets were reviewed. FINDINGS: Distribution: The maximum perfused segment at stress is in the anterior lateral wall. Perfusion Study: The pattern of perfusion at stress is within normal limits. There is a summed st ress score of 0. Gated Study: There are intact wall motion and wall thickening without hypokinetic or dyskinetic segm ents. The ejection fraction is calculated at >70%. RISK CATEGORY: Low (<1% Annual Motality Rate) CONCLUSION: 1. Normal wall motion and calculated ejection fraction. 2. No fixed or reversible wall defect to suggest ischemia or infarction. Electronically signed by: Jarrett Shaw MD 11/30/2017 4:35 PM EDT
[2017-11-30 17:38] LABS: Creatine Kinase 251 U/L (39-308)
[2017-12-01] MEDS: Sod Chloride 0.9% Inj 1,000 ML IV.CONT SCH ×2 (05:47→19:30)
[2017-12-01 08:52] LABS: Baso % (Auto) 0.4 % (0.0-2.0); Eos % (Auto) 0.7 % (0.0-4.0); Hematocrit 37.2 % (39.0-51.0); Hemoglobin 12.8 gm/dL (13.0-17.0); Mean Corpuscular HGB Conc 34.4 % (32.0-36.0); Mean Corpuscular Hemoglobin 31.8 pg (27.0-34.0); Mean Corpuscular Volume 92.5 fL (80.0-100.0); Mean Platelet Volume 7.9 fL (7.0-11.0); Mono # (Auto) 0.7 th/mm3 (0.0-0.9); Mono % (Auto) 12.6 % (0.0-8.0); Neut # (Auto) 2.5 th/mm3 (1.8-7.7); Neut % (Auto) 47.3 % (16.0-70.0); Platelet Count 147 th/mm3 (150-450); Red Blood Count 4.02 mil/mm3 (4.50-5.90); Red Cell Distribution Width 13.2 % (11.6-17.2); White Blood Count 5.2 th/mm3 (4.0-11.0)
[2017-12-01] MEDS: Folic Acid 1 MG Tablet PO SCH (08:59)
[2017-12-01] MEDS: Senna/Docusate Sodium 8.6/50 MG Tablet PO SCH ×2 (08:59→20:08)
[2017-12-01] MEDS: Multivitamin/Minerals Therapeutic Tablet PO SCH (08:59)
[2017-12-01 09:20] LABS: Albumin 3.5 g/dL (3.4-5.0); Anion Gap 11 meq/L (5-15); Aspartate Aminotransferase 169 U/L (15-37); Blood Urea Nitrogen 14 mg/dL (7-18); Calcium 8.6 mg/dL (8.5-10.1); Carbon Dioxide 26.5 meq/L (21.0-32.0); Chloride 99 meq/L (98-107); Glomerular Filtration Rate 69 mL/min (>89); Glucose,Random 91 mg/dL (74-106); Lipase 681 U/L (73-393); Potassium 3.6 meq/L (3.5-5.1); Sodium 136 meq/L (136-145)
[2017-12-01 09:21] LABS: Alanine Aminotransferase 163 U/L (12-78)
[2017-12-01 09:27] LABS: Alkaline Phosphatase 69 U/L (45-117); Total Protein 7.6 g/dL (6.4-8.2)
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
[2017-12-01] MEDS ORDERED: Non-Formulary Drug (Lisinopril-Hydrochlorothiazide [Lisinopril-Hydrochlorothiazide] 1 TAB) PO SCH (09:30)
[2017-12-01] MEDS: Lisinopril 10 MG Tablet PO SCH (10:41)
[2017-12-01] MEDS ORDERED: Haloperidol Inj 5 MG/ML Ampul IM ONE (14:07)
--- NOTE | 2017-12-01 15:42 | P.CONPSY ---
Provisional Diagnosis Admission Date: November 30, 2017 12:51 Mingo I.: 1. Delirium tremens Rule out delirium from other causes Mingo II.: Deferred History of Present Illness Service: Psychiatry Consult date: 12/01/17 Requesting Physician: Fadi Singleton Reason for Consult: Auditory hallucinations and agitation Primary Care Provider: No Primary Care Physician History of Present Illness: Mr. Echeverria is a 37 year-old male with no known past psychiatric history who presented initially on 11/30 with chest pain. He was placed in observation in the CDU for chest-pain rule-out. His course was uneventful until this afternoon apparently when he became acutely agitated, paranoid and began hallucinating. Patient's alcohol level on presentation here was 78. Reviewing the electronic medical record, I see no previous psychiatric contact within our system. Patient seen and examined. Chart reviewed. I note that Dr. Singleton has initiated a Suarez Act. Case discussed with nurse in CDU and with Dr. Singleton. Patient has received 2mg Ativan IV and 5mg Haldol IM about 1 hour prior to my evaluation, and patient has reportedly calmed significantly. Patient's is at the bedside and remains through the interview with patient's permission. On my examination today, the patient is mildly tremulous and diaphoretic. He is hypertensive and tachycardic. Mental status testing indicates some subtle evidence of disorientation and inattention, and the patient does seem distracted on exam. He remains paranoid and a little internally stimulated. He alludes to 3 men who he thought were after him before I came. He tells me that he was "feeling excellent" before this afternoon. I can elicit no mood symptoms, except that patient has been sleeping poorly in the hospital setting. He complains of anxiety and says that he feels easily frustrated. He denies any suicidal or homicidal ideation, intent or plan at this time. Remainder of the psychiatric ROS is negative. No acute physical complaints except that patient does feel a little bit unsteady, reportedly on account of the medications he has received. Past psychiatric history: Patient denies a history of psychiatric diagnosis. He denies a history of inpatient or outpatient psychiatric treatment. He denies a history of suicide attempts. Family history: The patient denies a family history of serious mental illness or suicide. Chemical dependency history: The patient says that he drinks 2-3 beers a day. He says that his last drink was Wednesday. He denies any history of DTs or seizures. He denies any other substance use. Social history: The patient has served in the [employer] for 20 years. He is with 3 children. He is high school educated. He denies any legal history. Denies any access to guns or firearms outside of the professional context. He is a Rastafarian. No reported trauma history. Past medical history: Patient denies any history of medical problems. With the patient's permission, I have obtained collateral from his , Donna Echeverria, outside of the room. Ms. Echeverria notes that patient in fact drinks 18- 24 beers daily. He is reportedly coming off a week of leave and had an episode on 11/29 when he vomited and passed out in the morning but seemed to come around and resumed drinking. He did not drink his usual amount on Wednesday because of the episode in the morning. She notes that he has no previous psychiatric history but that his mother is an alcoholic and his brother has substance use issues. His paternal grandfather completed suicide. She has never known him to have psychosis before, but he has never gone any length of time without drinking. She is not comfortable having him home in his current state. Review of Systems All other systems reviewed negative except as stated in HPI (Limitation: poor historian) [facility] - History History Provided By: Patient - Medical History Medical History: Medical History (Last Reviewed 11/30/17 @ 15:34 by Silvano Esparza) HTN (hypertension) Anxiety - Surgical History Surgical History: Surgical History (Last Reviewed 11/30/17 @ 15:34 by Silvano Esparza) S/P hernia repair - Family History Family History: Family History (Last Updated 11/30/17 @ 12:49 by Fadi Singleton MD) Other Family history non-contributory - Tobacco History Second Hand Smoke Exposure: Yes Tobacco Use In Past 30 Days: Yes Smoking Status: Current every day smoker Tobacco Type: Cigarettes, Smokeless Tobacco - Alcohol History How Often Do You Have a Drink Containing Alcohol: 2 to 3 times a week - Substance Use History Substance History: No History of Abuse - Travel History Recent Travel in the [place] Within the Last 8 Weeks: No Recent Travel Out of the Country Within the Last 8 Weeks: No - Immunization History Tetanus Immunization: <5 Years Hx Influenza Vaccine This Season: No Medications and Allergies Active Medications: Active Medications Acetaminophen (Tylenol) 650 mg PO Q4H PRN PRN Reason: Temp > 100.4 Al Hydroxide/Mg Hydroxide (Milk Of Magnesia Liq) 30 ml PO Q12H PRN PRN Reason: Mild Constipation Bisacodyl (Dulcolax Supp) 10 mg RECTAL DAILY PRN PRN Reason: SEVERE CONSITIPATION Clonidine HCl (Catapres) 0.1 mg PO Q6H PRN PRN Reason: SEE LABEL COMMENTS Enalaprilat (Vasotec Inj) 1.25 mg IV.PUSH Q6H PRN PRN Reason: SEE LABEL COMMENTS Flumazenil (Romazecon Inj) 0.2 mg IV.PUSH Q1M PRN PRN Reason: OVERSEDATION Folic Acid (Folic Acid) 1 mg PO DAILY [facility] Stop: 12/06/17 08:59 Last Admin: 12/01/17 08:59 Dose: 1 mg Haloperidol Lactate (Haldol Inj) 1 mg IV.PUSH Q15M PRN PRN Reason: for severe agitation Hydrochlorothiazide (Hydrodiuril) 12.5 mg PO DAILY [facility] Sodium Chloride (Ns Inj) 1,000 mls @ 100 mls/hr IV.CONT .Q10H [facility] Last Admin: 12/01/17 05:47 Dose: 100 mls/hr Lactulose (Lactulose Liq) 30 ml PO DAILY PRN PRN Reason: SEVERE CONSITIPATION Lisinopril (Prinivil) 10 mg PO DAILY [facility] Last Admin: 12/01/17 10:41 Dose: 10 mg Lorazepam (Ativan) 1 mg PO Q4H PRN PRN Reason: for CIWA 8-10 Lorazepam (Ativan) 2 mg PO Q2H PRN PRN Reason: for CIWA 11-14 Lorazepam (Ativan Inj) 2 mg IV.PUSH Q2H PRN PRN Reason: for CIWA 11-14 Lorazepam (Ativan Inj) 2 mg IV.PUSH Q1H PRN PRN Reason: for CIWA 15-20 Lorazepam (Ativan Inj) 2 mg IV.PUSH Q15M PRN PRN Reason: for CIWA > 20 Last Admin: 12/01/17 14:56 Dose: 2 mg Lorazepam (Ativan Inj) 1 mg IV.PUSH Q4H PRN PRN Reason: for CIWA 8-10 Multivitamins/Minerals (Theragran-M) 1 tab PO DAILY [facility] Stop: 12/06/17 08:59 Last Admin: 12/01/17 08:59 Dose: 1 tab Ondansetron HCl (Zofran Odt) 4 mg PO Q6H PRN PRN Reason: NAUSEA OR VOMITING Senna/Docusate Sodium (Kenia-Colace) 1 tab PO BID [facility] Last Admin: 12/01/17 08:59 Dose: 1 tab Sennosides (Senokot) 17.2 mg PO Q12H PRN PRN Reason: Moderate Constipation Sodium Chloride (Ns Flush) 2 ml IV.FLUSH UNSCH PRN PRN Reason: FLUSH AFTER USING IV ACCESS Temazepam (Restoril) 15 mg PO HS PRN PRN Reason: INSOMNIA Thiamine HCl (Vitamin B1) 100 mg PO DAILY [facility] Last Admin: 12/01/17 08:59 Dose: 100 mg Allergies Allergy/AdvReac Type Severity Reaction Status Date / Time No Known Allergies Allergy Verified 11/30/17 01:34 Home Medications Medication Instructions Recorded Confirmed Type lisinopril-hydrochlorothiazide 1 tab PO DAILY 11/30/17 11/30/17 History Exam Vital signs: Vital Signs 11/30/17 16:00 11/30/17 17:21 11/30/17 20:00 Temperature 98.0 F 98.9 F Pulse Rate 82 89 90 Respiratory Rate 16 18 Blood Pressure 137/88 153/92 H Pulse Oximetry 98 95 11/30/17 21:15 12/01/17 00:00 12/01/17 00:26 Temperature 98.4 F Pulse Rate 84 86 106 H Respiratory Rate 18 Blood Pressure 134/93 H Pulse Oximetry 98 12/01/17 04:00 12/01/17 04:09 12/01/17 07:21 Temperature 98.0 F 98.3 F Pulse Rate 76 90 72 Respiratory Rate 16 16 Blood Pressure 130/69 140/93 H Pulse Oximetry 95 12/01/17 11:50 12/01/17 11:54 12/01/17 14:56 Temperature 97.9 F 98.6 F Pulse Rate 72 108 H Respiratory Rate 18 18 Blood Pressure 161/99 H 150/90 H 171/104 H Pulse Oximetry 98 98 Intake & Output 11/30/17 12/01/17 12/01/17 18:59 06:59 18:59 Intake Total 1000 / 1000 1000 / 1000 Balance 1000 / 1000 1000 / 1000 Weight 79.379 kg 79.379 kg Intake: IV 1000 / 1000 1000 / 1000 NS Inj 1,000 ML @ 100 mls/hr IV 1000 / 1000 1000 / 1000 .CONT .Q10H [facility] Rx#:[id number] Other: Post Void Residual 300 # Voids 2 Weight On Admission 79.379 kg Narrative: Physical examination completed by primary team. On my examination today, the patient presents as mildly tremulous and diaphoretic. No mydriasis. No other motor abnormalities noted. Labs and vital signs reviewed: Laboratory Tests 11/30/17 11/30/17 12/01/17 03:19 06:28 07:59 WBC Hgb Plt Count Sodium 136 Potassium 3.6 Chloride 99 Carbon Dioxide 26.5 BUN 14 Creatinine 1.17 Estimated GFR 69 L AST 169 H ALT 163 H Alkaline Phosphatase 69 Lipase 681 H TSH 5.930 H Free T4 1.07 Free T3 3.94 Urine Opiates Screen Neg Ur Barbiturates Screen Neg Ur Amphetamines Screen Neg U Benzodiazepines Scrn Neg Urine Cocaine Screen Neg U Cannabinoids Screen Neg Serum Alcohol 78 H 12/01/17 07:59 WBC 5.2 Hgb 12.8 L Plt Count 147 L Sodium Potassium Chloride Carbon Dioxide BUN Creatinine Estimated GFR AST ALT Alkaline Phosphatase Lipase TSH Free T4 Free T3 Urine Opiates Screen Ur Barbiturates Screen Ur Amphetamines Screen U Benzodiazepines Scrn Urine Cocaine Screen U Cannabinoids Screen Serum Alcohol EKG NSR QTc 424ms, not prolonged. Mental Status Examination Appearance: Disheveled Consciousness: Alert, Vigilant Orientation: Person, Place, Date/Time (gives year as 2016.) Motor Activity: Abnormal gait (Unsteady), Other (Motor exam as above) Speech: Hesitant Language: Adequate Fund of Knowledge: Adequate Attention and Concentration: Easily distracted (Makes 1 error in 5 iterations of serial 7s) Memory: Impaired (Registration 3 out of 3 but recalls 0 out of 3 at 3 minutes) Mood: Anxious, Irritable Affect: Irritable, Anxious Thought Process & Associations: Circumstantial Thought Content: Hallucinations, Delusional Hallucination Type: Auditory (Somewhat internally stimulated) Delusion Type: Paranoid Suicidal Ideation: No Suicidal Plan: No Suicidal Intention: No Homicidal Ideation: No Homicidal Plan: No Homicidal Intention: No Insight: Poor Judgment: Poor Assessment and Plan - Assessment (1) Delirium tremens Code(s): F10.231 - Alcohol dependence with withdrawal delirium Status: Acute - Plan Plan: 37-year-old male with no known past psychiatric history presently and observation in the CDU for chest pain rule out. Psychiatry is consulted after patient became acutely agitated and psychotic this afternoon. Collateral from patient's indicates patient is drinking upwards of a case of beer a day, last on Wednesday (although not his full amount). Patient is therefore within the peak time of risk for onset of DTs. He appears to have responded well to parenteral Haldol/Ativan, and I suspect his mental status has improved with provision of benzodiazepines. Although other causes of delirium need to be ruled out, I place DTs at the top of the differential. Initial presentation of primary psychotic or other psychiatric illness seems much less likely at present. I recommend the following: --Consider cotton expert consultation for possible transfer to ICU for management of DTs. --Recommend liberal provision of benzodiazepines for management of probable withdrawal. Given hepatic impairment, would prefer Ativan to e.g. Librium. Could start with Ativan 2mg q4h IV, holding for sedation and increasing frequency as needed to control symptoms. Would continue CIWA for breakthrough withdrawal. Recommend ample repletion of thiamine/folate. --Psychotic symptoms seem to have responded to Haldol 5mg IM and patient seems to be tolerating this agent well. Could utilize Haldol 2-5mg IM q6h p.r.n. severe agitation unresponsive to benzodiazepines, but be careful to monitor QTc since arrhythmia is a risk and cause of mortality in DTs. Keep K>4 and Mg>2 to lessen risk of arrhythmia with antipsychotic use. --Although DTs seems most likely, consider workup for other causes of AMS. Pt' s lipase is elevated and he vomited and passed out on Wednesday, could he have acute pancreatitis or other sequela of chronic heavy alcohol use (such as hyperammonemic encephalopathy, fall with ICH, etc.)? Consider working him up for these issues. Could cast an even wider net and check RPR, HIV, thiamine/ RBC folate, EEG, etc. but I think it is reasonable to hold off unless patient fails to improve with management as suggested above. --I will leave the Suarez Act in place pending reassessment. I have discussed case with Dr. Singleton and RN following my visit with patient. I will follow along. Thank you very much for this consultation. Please call or page [phone] during daylight hours with questions. Justification for Continued Inpatient Stay: Per primary team.
[2017-12-01] MEDS ORDERED: Dexmedetomidine Inj 200 MCG in Sodium Chlor 0.9% Inj 48 ML IV.CONT PRN (15:51)
--- NOTE | 2017-12-01 16:32 | CT ---
EXAM DATE: 12/01/2017 4:23 PM EDT AGE/SEX: 37 years / Male INDICATIONS: Altered mental status CLINICAL DATA: This is the patient's initial encounter. Patient reports that signs and symptoms have been present for 1 day and indicates a pain score of 0/10. MEDICAL/SURGICAL HISTORY: Hypertension. . Hernia repair RADIATION DOSE: 56.35 CTDI (mGy) COMPARISON: No prior exams available for comparison. TECHNIQUE: CT of the head without contrast. Using automated exposure control and adjustment of the mA and/or kV according to patient size, radiation dose was kept as low as reasonably achievable to ob tain optimal diagnostic quality images. DICOM format image data is available electronically for revi ew and comparison. FINDINGS: Cerebrum: The ventricles are normal for age. No evidence of midline shift, mass lesion, hemorrhage or acute infarction. No extraaxial fluid collections are seen. Posterior Fossa: The cerebellum and brainstem are intact. The 4th ventricle is midline. The cerebe llopontine angle is unremarkable. Extracranial: The visualized portion of the orbits is intact. Skull: The calvaria is intact. No evidence of skull fracture. 1. Negative CT Head non contrast. . Electronically signed by: Mohit Isabel MD 12/01/2017 4:31 PM EDT
--- NOTE | 2017-12-01 16:47 | P.CONCC ---
History of Present Illness Service: Critical Care Consult date: 12/01/17 Requesting Physician: Fadi Singleton Reason for Consult: Alcohol withdrawal, hallucinations Primary Care Provider: Amanda Primary Care Physician Chief Complaint: Anxiety, chest pain History of Present Illness: Patient is a 37-year-old male who is a admitted to hospitalist service with complaints of anxiety and chest pain. Patient has history of hypertension anxiety and significant alcohol intake sometimes doing up to a case of beer daily (per psych consult note, patient claims 2-6 beers daily). Apparently on the night prior to admission, patient became diaphoretic and passed out, he was drinking alcohol at that time but not to his full amount. He also developed mild chest pain. Extensive workup for cardiac ischemia and syncope have been negative. Today afternoon patient became acutely agitated and psychotic, also having delusions. Psychiatry was consulted, according to psych this was probably secondary to severe delirium tremens; he recommended ICU admission and open claims representative consult. Patient was already on CIWA protocol and supplementation multivitamin and thiamine. I evaluated the patient in the observation unit. He sitting up in a chair is at the bedside. He is calmer than before but very tremulous. He appears to be in alcohol withdrawal but currently he is cooperative. I will place him on scheduled Librium 25 every 6 hours along with Precedex to be started if needed. Review of Systems unobtainable due to mental condition [facility] - History History Provided By: Patient - Medical History Medical History: Medical History (Last Reviewed 11/30/17 @ 15:34 by Silvano Esparza) HTN (hypertension) Anxiety - Surgical History Surgical History: Surgical History (Last Reviewed 11/30/17 @ 15:34 by Silvano Esparza) S/P hernia repair - Family History Family History: Family History (Last Updated 11/30/17 @ 12:49 by Fadi Singleton MD) Other Family history non-contributory - Tobacco History Second Hand Smoke Exposure: Yes Tobacco Use In Past 30 Days: Yes Smoking Status: Current every day smoker Tobacco Type: Cigarettes, Smokeless Tobacco - Alcohol History How Often Do You Have a Drink Containing Alcohol: 2 to 3 times a week - Substance Use History Substance History: No History of Abuse - Travel History Recent Travel in the [facility] Within the Last 8 Weeks: No Recent Travel Out of the Country Within the Last 8 Weeks: No - Immunization History Tetanus Immunization: <5 Years Hx Influenza Vaccine This Season: No Medications and Allergies Active Medications: Active Medications Acetaminophen (Tylenol) 650 mg PO Q4H PRN PRN Reason: Temp > 100.4 Al Hydroxide/Mg Hydroxide (Milk Of Magnesia Liq) 30 ml PO Q12H PRN PRN Reason: Mild Constipation Bisacodyl (Dulcolax Supp) 10 mg RECTAL DAILY PRN PRN Reason: SEVERE CONSITIPATION Clonidine HCl (Catapres) 0.1 mg PO Q6H PRN PRN Reason: SEE LABEL COMMENTS Enalaprilat (Vasotec Inj) 1.25 mg IV.PUSH Q6H PRN PRN Reason: SEE LABEL COMMENTS Flumazenil (Romazecon Inj) 0.2 mg IV.PUSH Q1M PRN PRN Reason: OVERSEDATION Folic Acid (Folic Acid) 1 mg PO DAILY [facility] Stop: 12/06/17 08:59 Last Admin: 12/01/17 08:59 Dose: 1 mg Haloperidol Lactate (Haldol Inj) 1 mg IV.PUSH Q15M PRN PRN Reason: for severe agitation Hydrochlorothiazide (Hydrodiuril) 12.5 mg PO DAILY [facility] Sodium Chloride (Ns Inj) 1,000 mls @ 100 mls/hr IV.CONT .Q10H REPLACED [facility] Last Admin: 12/01/17 05:47 Dose: 100 mls/hr Dexmedetomidine HCl 200 mcg/ (Sodium Chloride) 50 mls @ 3.96 mls/hr IV.CONT TITRATE PRN; Protocol PRN Reason: Per Protocol Lactulose (Lactulose Liq) 30 ml PO DAILY PRN PRN Reason: SEVERE CONSITIPATION Lisinopril (Prinivil) 10 mg PO DAILY [facility] Last Admin: 12/01/17 10:41 Dose: 10 mg Lorazepam (Ativan) 1 mg PO Q4H PRN PRN Reason: for CIWA 8-10 Lorazepam (Ativan) 2 mg PO Q2H PRN PRN Reason: for CIWA 11-14 Lorazepam (Ativan Inj) 2 mg IV.PUSH Q2H PRN PRN Reason: for CIWA 11-14 Lorazepam (Ativan Inj) 2 mg IV.PUSH Q1H PRN PRN Reason: for CIWA 15-20 Lorazepam (Ativan Inj) 2 mg IV.PUSH Q15M PRN PRN Reason: for CIWA > 20 Last Admin: 12/01/17 14:56 Dose: 2 mg Lorazepam (Ativan Inj) 1 mg IV.PUSH Q4H PRN PRN Reason: for CIWA 8-10 Multivitamins/Minerals (Theragran-M) 1 tab PO DAILY [facility] Stop: 12/06/17 08:59 Last Admin: 12/01/17 08:59 Dose: 1 tab Ondansetron HCl (Zofran Odt) 4 mg PO Q6H PRN PRN Reason: NAUSEA OR VOMITING Senna/Docusate Sodium (Kenia-Colace) 1 tab PO BID [facility] Last Admin: 12/01/17 08:59 Dose: 1 tab Sennosides (Senokot) 17.2 mg PO Q12H PRN PRN Reason: Moderate Constipation Sodium Chloride (Ns Flush) 2 ml IV.FLUSH UNSCH PRN PRN Reason: FLUSH AFTER USING IV ACCESS Temazepam (Restoril) 15 mg PO HS PRN PRN Reason: INSOMNIA Thiamine HCl (Vitamin B1) 100 mg PO DAILY [facility] Last Admin: 12/01/17 08:59 Dose: 100 mg Allergies Allergy/AdvReac Type Severity Reaction Status Date / Time No Known Allergies Allergy Verified 11/30/17 01:34 Home Medications Medication Instructions Recorded Confirmed Type lisinopril-hydrochlorothiazide 1 tab PO DAILY 11/30/17 11/30/17 History Physical Exam Vital signs: Vital Signs 11/30/17 17:21 11/30/17 20:00 11/30/17 21:15 Temperature 98.9 F Pulse Rate 89 90 84 Respiratory Rate 18 Blood Pressure 153/92 H Pulse Oximetry 95 12/01/17 00:00 12/01/17 00:26 12/01/17 04:00 Temperature 98.4 F 98.0 F Pulse Rate 86 106 H 76 Respiratory Rate 18 16 Blood Pressure 134/93 H 130/69 Pulse Oximetry 98 95 12/01/17 04:09 12/01/17 07:21 12/01/17 11:50 Temperature 98.3 F 97.9 F Pulse Rate 90 72 72 Respiratory Rate 16 18 Blood Pressure 140/93 H 161/99 H Pulse Oximetry 98 12/01/17 11:54 12/01/17 14:56 12/01/17 16:00 Temperature 98.6 F 98.1 F Pulse Rate 108 H 81 Respiratory Rate 18 20 Blood Pressure 150/90 H 171/104 H 134/81 Pulse Oximetry 98 99 Intake & Output 11/30/17 12/01/17 12/01/17 18:59 06:59 18:59 Intake Total 1000 / 1000 1000 / 1000 Balance 1000 / 1000 1000 / 1000 Weight 79.379 kg 79.379 kg Intake: IV 1000 / 1000 1000 / 1000 NS Inj 1,000 ML @ 100 mls/hr IV 1000 / 1000 1000 / 1000 .CONT .Q10H [facility] Rx#:[id number] Other: Post Void Residual 300 # Voids 2 Weight On Admission 79.379 kg Narrative: GENERAL: Well developed and well nourished. Sitting up in chair. Appears anxious tremulous SKIN: Warm and dry. CARDIOVASCULAR: Tachycardic. S1-S2 normal no murmurs RESPIRATORY: No accessory muscle use. Clear to auscultation. Breath sounds equal bilaterally. GASTROINTESTINAL: Abdomen soft, non-tender, nondistended. MUSCULOSKELETAL: Extremities without clubbing, cyanosis, or edema. NEUROLOGICAL: Awake and alert. No obvious cranial nerve deficits. Motor grossly within normal limits. Visual hallucinations described in previous exam. Currently patient is very tremulous in the upper extremities. Septic Shock Reassessment Septic shock perfusion: reassessment completed Assessment and Plan - Assessment and Plan Plan: ASSESSMENT: Alcohol withdrawal syndrome/delirium tremens Alcohol dependence Poorly controlled hypertension Elevated liver enzymes, elevated bilirubin Hyponatremia Atypical chest pain Anxiety disorder PTSD PLAN: NEURO: -CIWA protocol. Start scheduled Librium 25 mg p.o. every 6 hours -Precedex if needed for alcohol withdrawal -Watch for seizures -Use as needed Haldol -Supplement multivitamin thiamine RESP: -Oxygen saturation on nasal cannula -DuoNeb as needed if needed CV: -Normal saline IV fluids 100 ml per hour -Continue home antihypertensives -Ischemia workup and carotid ultrasound negative GI: -Heart healthy diet, IV famotidine -Ultrasound of the liver ordered -Transaminitis secondary to alcohol dependence ruled out early cirrhosis : -Monitor renal function closely. ID: -Watch closely for signs of infection, no antibiotics at this time HEME: -Monitor CBC, coags ENDO: -Electrolyte replacement per protocol -Hyponatremia improving with IV fluids PROPH: -Bilateral lower extremity SCDs. Lovenox/famotidine LINES: -Utilize peripheral IVs, central line if needed Level 3 consult Code Status: Full Discussed Condition With: Dr. Singleton
[2017-12-01] MEDS ORDERED: Sodium Phosphate Inj 30 MMOL in Sodium Chlor 0.9% Inj 250 ML IV.SIG PRN (17:06)
[2017-12-01] MEDS ORDERED: Potassium Chlor 40 mEq Premix 40 MEQ/100 ML PIGGYBACK IV.SIG PRN ×2 (17:06)
[2017-12-01] MEDS ORDERED: Potassium Phosphate 500 MG Soluble Tablet PO PRN ×2 (17:06)
[2017-12-01] MEDS ORDERED: Potassium Chloride 25 MEQ Effervescent Tablet PO PRN (17:06)
[2017-12-01] MEDS ORDERED: Magnesium Sulfate Inj 2 GM in Sodium Chlor 0.9% Inj 96 ML IV.SIG PRN (17:06)
[2017-12-01] MEDS ORDERED: Magnesium Oxide 400 MG Tablet PO PRN (17:06)
[2017-12-01] MEDS ORDERED: Magnesium Sulfate Inj 4 GM in Sodium Chlor 0.9% Inj 92 ML IV.SIG PRN (17:06)
[2017-12-01] MEDS ORDERED: Potassium Phosphate Inj 30 MMOL in Sodium Chlor 0.9% Inj 250 ML IV.SIG PRN (17:06)
[2017-12-01] MEDS ORDERED: Potassium Chlor 20 mEq Premix 20 MEQ/100 ML PIGGYBACK IV.SIG PRN ×2 (17:06)
--- NOTE | 2017-12-01 17:46 | US ---
EXAM DATE: 12/01/2017 5:42 PM EDT AGE/SEX: 37 years / Male INDICATIONS: Increased lab values. CLINICAL DATA: This is the patient's initial encounter. Patient reports that signs and symptoms have been present for 1 day and indicates a pain score of 0/10. MEDICAL/SURGICAL HISTORY: Hypertension. . Hernia repair. COMPARISON: No prior exams available for comparison. MEASUREMENTS: Liver:__ 16.1 cm. Common Bile Duct:__ 3mm. Right Kidney:__ 11.1 x 5.3 x 5.3 cm. FINDINGS: Liver: Increased echotexture without focal lesion or ductal dilation. Portal Vein: Hepatopedal flow seen in portal vein. Common Duct: No intraluminal mass or stone visualized. Gallbladder: Demonstrates no wall thickening or pericholecystic fluid. No stones visualized. Pancreas: Not well visualized. Right Kidney: Normal echotexture and cortical thickness. No mass or hydronephrosis. Other: None. CONCLUSION: 1. Liver is increased in echogenicity most characteristic of mild hepatic steatosis. There is no foc al lesion. 2. Unremarkable gallbladder with no evidence of cholelithiasis. Electronically signed by: Jarrett Shaw MD 12/01/2017 5:44 PM EDT
[2017-12-01] MEDS: chlordiazePOXIDE 25 MG Capsule PO SCH (18:36)
--- NOTE | 2017-12-01 19:02 | ECG ---
Date Performed: 11/30/2017 Time Performed: 16:43:59 PTAGE: 37 years EKG: Sinus rhythm WITH SHORT RI INTERVAL BORDERLINE ECG PREVIOUS TRACING : 11/30/2017 09.50 Since the previous tracing, no significant change noted DOCTOR: Raj Jacob Interpretating Date/Time 12/01/2017 19:01:21
[2017-12-02] MEDS: Sod Chloride 0.9% Inj 1,000 ML IV.CONT SCH ×2 (05:25→12:32)
[2017-12-02] MEDS: chlordiazePOXIDE 25 MG Capsule PO SCH ×5 (05:25→23:14)
[2017-12-02 07:17] LABS: Albumin 3.4 g/dL (3.4-5.0); Anion Gap 8 meq/L (5-15); Aspartate Aminotransferase 230 U/L (15-37); Blood Urea Nitrogen 11 mg/dL (7-18); Calcium 8.2 mg/dL (8.5-10.1); Carbon Dioxide 25.9 meq/L (21.0-32.0); Chloride 108 meq/L (98-107); Glomerular Filtration Rate Greater Than 89 mL/min (>89); Glucose,Random 91 mg/dL (74-106); Lipase 492 U/L (73-393); Magnesium 2.2 mg/dL (1.5-2.5); Potassium 3.7 meq/L (3.5-5.1); Sodium 142 meq/L (136-145)
[2017-12-02 07:44] LABS: Alanine Aminotransferase 210 U/L (12-78); Alkaline Phosphatase 60 U/L (45-117); Total Protein 7.1 g/dL (6.4-8.2)
[2017-12-02] MEDS: Folic Acid 1 MG Tablet PO SCH (09:50)
[2017-12-02] MEDS: hydroCHLOROthiazide 25 MG Tablet PO SCH ×2 (09:52→17:50)
[2017-12-02] MEDS: Multivitamin/Minerals Therapeutic Tablet PO SCH (09:53)
[2017-12-02] MEDS: Lisinopril 10 MG Tablet PO SCH (09:53)
[2017-12-02] MEDS: Senna/Docusate Sodium 8.6/50 MG Tablet PO SCH ×2 (09:53→20:47)
--- NOTE | 2017-12-02 12:44 | P.PNPSY ---
Case signed out to Dr. Sarabia, who will assume consultative role. If you require psychiatric assistance with this patient, please contact Dr. Sarabia.
--- NOTE | 2017-12-02 13:24 | P.PN ---
Subjective Interval history: f/u DT. Denies any c/o. Per RN still having hallucinations. Discussed with critical care medicine. Physical Exam Vital signs: Vital Signs 12/01/17 14:56 12/01/17 16:00 12/01/17 18:00 Temperature 98.6 F 98.1 F 98.6 F Pulse Rate 108 H 81 108 H Respiratory Rate 18 20 24 Blood Pressure 171/104 H 134/81 142/84 H Pulse Oximetry 98 99 97 12/01/17 18:06 12/01/17 18:25 12/01/17 20:00 Temperature 98.6 F Pulse Rate 76 86 Respiratory Rate 17 Blood Pressure 119/61 Pulse Oximetry 100 98 12/01/17 22:00 12/02/17 00:00 12/02/17 02:00 Temperature 98.3 F Pulse Rate 62 67 85 Respiratory Rate 17 Blood Pressure 145/82 H Pulse Oximetry 98 12/02/17 04:00 12/02/17 06:00 12/02/17 08:00 Temperature 98.4 F 98.6 F Pulse Rate 59 L 57 L 74 Respiratory Rate 17 19 Blood Pressure 185/86 H 130/87 Pulse Oximetry 98 100 12/02/17 09:00 12/02/17 10:00 12/02/17 12:00 Temperature Pulse Rate 62 64 90 Respiratory Rate 28 H Blood Pressure 160/90 H Pulse Oximetry 100 Intake & Output 12/01/17 12/02/17 12/02/17 18:59 06:59 18:59 Intake Total 1000 / 1000 240 / 240 Output Total 2400 / 2400 Balance 1000 / 1000 -2160 / -2160 Weight 78.8 kg Intake: IV 1000 / 1000 0 / 0 NS Inj 1,000 ML @ 100 mls/hr IV 1000 / 1000 0 / 0 .CONT .Q10H DOMINIC Rx#:[id number] Oral 240 / 240 Output: Urine 2400 / 2400 Other: # Voids 4 Date of Last Bowel Movement 12/01/17 12/01/17 12/01/17 # Bowel Movements 0 Narrative: GENERAL: Well developed and well nourished. Sitting up in chair. Appears anxious tremulous SKIN: Warm and dry. CARDIOVASCULAR: Tachycardic. S1-S2 normal no murmurs RESPIRATORY: No accessory muscle use. Clear to auscultation. Breath sounds equal bilaterally. GASTROINTESTINAL: Abdomen soft, non-tender, nondistended. MUSCULOSKELETAL: Extremities without clubbing, cyanosis, or edema. NEUROLOGICAL: Awake and alert. No obvious cranial nerve deficits. Motor grossly within normal limits. Results - Labs CBC & Chem 7: 12/01/17 07:59 12/02/17 06:09 Laboratory Results - last 24 hr 12/01/17 12/02/17 18:00 06:09 Sodium 142 Potassium 3.7 Chloride 108 H D Carbon Dioxide 25.9 Anion Gap 8 BUN 11 Creatinine 0.91 Estimated GFR Greater than 89 Random Glucose 91 Calcium 8.2 L Magnesium 2.2 Total Bilirubin 0.8 AST 230 H ALT 210 H Alkaline Phosphatase 60 Total Protein 7.1 Albumin 3.4 Lipase 492 H Nasal Screen MRSA (PCR) Not detected - Imaging Impressions Head CT 12/01/17 00:00 CONCLUSION: Liver Ultrasound 12/01/17 00:00 CONCLUSION: - Procedures none Assessment and Plan - Plan This is a 37-year-old male who was brought into the emergency department because of chest tightness. Underwent negative stress test. Patient noted to be agitated with visual hallucinations. He has developed delirium tremens Syncope likely from alcohol intoxication. Patient with alcohol level of 78 with last intake 8 hrs prior. He passed out one hour after imbibing. At this time he is neurologically intact. Continue to monitor on telemetry, neuro checks and follow-up echocardiogram and EEG. Carotid ultrasound and head CT unremarkable. Further discussion with who stated that patient did not have significant alcohol intake prior to passing out. Elevated lipase likely reason for chest pain. He denies abdominal pain/ tenderness at this time. Will monitor alcohol abuse with hyponatremia and abnormal liver function tests. Patient has been counseled. CIWA protocol. States he will seek help outpatient. DT. Stable on librium but I anticipate he will probably get worse before he gets better. Continue CIWA protocol. Discussed with critical care medicine and psychiatry DVT prophylaxis with SCD Discharge Planning: Possible transfer out of ICU in the morning if he remains stable
[2017-12-02] MEDS ORDERED: Melatonin 5 MG Tablet PO PRN (14:51)
--- NOTE | 2017-12-02 17:31 | ECHRPT ---
Indication: SOB CONCLUSIONS The left ventricular systolic function is normal with an estimated ejection fraction in the range of 55-60%. Normal left ventricular size. Wall thickness is normal. No regional wall motion abnormalities are present. The pulmonary valve is not well visualized. BP: / HR: Rhythm: Sinus MEASUREMENTS (Male / Female) Normal Values Technical Quality:Good 2D ECHO LV Diastolic Diameter PLAX 4.6 cm 4.2 - 5.9 / 3.9 - 5.3 cm LV Systolic Diameter PLAX 3.1 cm IVS Diastolic Thickness 1.0 cm 0.6 - 1.0 / 0.6 - 0.9 cm LVPW Diastolic Thickness 1.0 cm 0.6 - 1.0 / 0.6 - 0.9 cm LV Relative Wall Thickness 0.4 RV Internal Dim ED PLAX 2.6 cm LVOT Diameter 1.9 cm LA Systolic Diameter LX 3.4 cm 3.0 - 4.0 / 2.7 - 3.8 cm LV Ejection Fraction MOD 4C 64.1 % LV Ejection Fraction 4C AL 67.1 % M-MODE Aortic Root Diameter MM 1.8 cm AV Cusp Separation MM 1.8 cm DOPPLER AV Peak Velocity 194.0 cm/s AV Peak Gradient 15.1 mmHg LVOT Peak Velocity 116.0 cm/s LVOT Peak Gradient 5.4 mmHg AV Area Cont Eq pk 1.7 cm MV Area PHT 5.2 cm Mitral E Point Velocity 72.6 cm/s Mitral A Point Velocity 55.8 cm/s Mitral E to A Ratio 1.3 LV E' Lateral Velocity 12.6 cm/s Mitral E to LV E' Lateral Ratio 5.8 LV E' Septal Velocity 10.0 cm/s Mitral E to LV E' Septal Ratio 7.3 PV Peak Velocity 105.0 cm/s PV Peak Gradient 4.4 mmHg FINDINGS LEFT VENTRICLE The left ventricular systolic function is normal with an estimated ejection fraction in the range of 55-60%. Normal left ventricular size. Wall thickness is normal. No regional wall motion abnormalities are present. RIGHT VENTRICLE Normal right ventricular size and systolic function. LEFT ATRIUM The left atrial size is normal. RIGHT ATRIUM The right atrial size is normal. ATRIAL SEPTUM Normal atrial septal thickness without atrial level shunting by limited color doppler interrogation. AORTA The aortic root and proximal ascending aorta are normal in size on limited imaging. MITRAL VALVE Structurally normal mitral valve. No mitral valve stenosis or regurgitation. AORTIC VALVE Trileaflet aortic valve. No aortic valve stenosis or regurgitation. TRICUSPID VALVE Structurally normal tricuspid valve. No tricuspid valve stenosis or regurgitation. PULMONARY VALVE The pulmonary valve is not well visualized. VESSELS The inferior vena cava is normal in size. PERICARDIUM No pericardial effusion. Toi Lowe MD, FACC, [facility] [place] (Electronically Signed) Final Date:02 December 2017 17:30
[2017-12-02 17:32] VITALS: O2SAT 98
[2017-12-03] MEDS: Sod Chloride 0.9% Inj 1,000 ML IV.CONT SCH ×2 (04:04→05:03)
[2017-12-03] MEDS: chlordiazePOXIDE 25 MG Capsule PO SCH ×2 (05:02→12:14)
[2017-12-03 06:28] VITALS: PULSE 75
[2017-12-03 08:08] VITALS: BP 133/88; RESP 18; TEMP 98.6
[2017-12-03] MEDS: Folic Acid 1 MG Tablet PO SCH (08:34)
[2017-12-03] MEDS: Lisinopril 10 MG Tablet PO SCH (08:34)
[2017-12-03] MEDS: Multivitamin/Minerals Therapeutic Tablet PO SCH (08:34)
[2017-12-03] MEDS: Senna/Docusate Sodium 8.6/50 MG Tablet PO SCH (08:34)
[2017-12-03] MEDS: hydroCHLOROthiazide 25 MG Tablet PO SCH (08:35)
--- NOTE | 2017-12-03 09:32 | P.DS ---
Date of admission: 11/30/17 12:51 Primary care physician: No Primary Care Physician Brief History from admission: This is a 37-year-old male who was brought into the emergency department because of chest tightness. Started last night around 7 pm when he passed out in the car. His was driving home from their son's birthday libertarian. Suddenly he became diaphoretic and passed out duration not known. No confusion, tongue biting or incontinence but became nauseous and vomited once. He also developed mild constant chest tightness without radiation. Denies shortness of breath, leg pain and swelling. He then went to bed but continued to have chest pain and diaphoresis. He also felt his heart racing and was weak. He was also starting to feel numb. Persistence of chest discomfort prompted him to present to the emergency room at 1 AM. Denies history of CAD, DVT or PE. He exercises rides his bike 15 minutes at a time without any symptoms. States he cannot run because of knee tendinitis. At this time, he feels anxious and tremulous. Denies hallucinations. Initially states he drinks alcohol socially but when he was told about abnormal liver function tests he admits he drinks 2 beers almost every day. All other systems reviewed negative DS: Medications - Discharge Medications Prescriptions: chlordiazepoxide HCl 25 mg PO Q8H #12 cap thiamine HCl (vitamin B1) 100 mg PO DAILY #30 tab DS: Summary Hospital Course: This is a 37-year-old male who was brought into the emergency department because of chest tightness. Underwent negative stress test. Patient noted to be agitated with visual hallucinations. He has developed delirium tremens DT. Stable on librium will taper. Continue CIWA protocol. BA to be lifted by psychiatry . Pt motivated to dc etoh will seek o/p tx Syncope likely from alcohol intoxication. Patient with alcohol level of 78 with last intake 8 hrs prior. He passed out one hour after imbibing. At this time he is neurologically intact. Continue to monitor on telemetry and neuro checks. ECHO, Carotid ultrasound and head CT unremarkable. Elevated lipase likely reason for chest pain. He denies abdominal pain/ tenderness at this time. Will monitor Alcohol abuse with hyponatremia and abnormal liver function tests. US liver noted. Patient has been counseled. CIWA protocol. States he will seek help outpatient. DVT prophylaxis with SCD - Time Spent with Patient Total time spent providing and/or coordinating discharge services: - Quality: VTE Deep Vein Thrombosis/Pulmonary Embolism Present on Admission: Yes Exam Vital signs: Vital Signs 12/02/17 10:00 12/02/17 12:00 12/02/17 14:00 Temperature 98.4 F Pulse Rate 64 90 98 H Respiratory Rate 22 Blood Pressure 134/77 Pulse Oximetry 97 12/02/17 16:00 12/02/17 20:00 12/02/17 22:00 Temperature 98.4 F 98.6 F Pulse Rate 71 83 94 H Respiratory Rate 18 17 Blood Pressure 146/94 H Pulse Oximetry 98 98 12/03/17 00:00 12/03/17 02:00 12/03/17 04:00 Temperature 98.7 F Pulse Rate 64 72 66 Respiratory Rate 17 17 Blood Pressure 123/71 134/81 Pulse Oximetry 98 98 12/03/17 06:00 12/03/17 08:00 12/03/17 09:00 Temperature 98.6 F Pulse Rate 75 66 75 Respiratory Rate 18 Blood Pressure 133/88 Pulse Oximetry Intake & Output 12/02/17 12/03/17 12/03/17 18:59 06:59 18:59 Intake Total 1040 / 1040 Output Total 1999 Balance -960 / -960 Weight 77.8 kg Intake: IV 300 / 300 NS Inj 1,000 ML @ 80 mls/hr IV. 300 / 300 CONT .[id number] DOMINIC Rx#:[id number] Oral 740 / 740 Output: Urine 1999 Other: # Voids 4 Date of Last Bowel Movement 12/01/17 12/01/17 12/01/17 # Bowel Movements 0 Narrative: GENERAL: Well developed and well nourished. SKIN: Warm and dry. CARDIOVASCULAR: RRR. S1-S2 normal no murmurs RESPIRATORY: No accessory muscle use. Clear to auscultation. Breath sounds equal bilaterally. GASTROINTESTINAL: Abdomen soft, non-tender, nondistended. MUSCULOSKELETAL: Extremities without clubbing, cyanosis, or edema. NEUROLOGICAL: Awake and alert. No obvious cranial nerve deficits. Motor grossly within normal limits. Calm and cooperative. Tremors resolved no hallucination Results Procedures completed during hospitalization: none - Impressions ITS Impressions Carotid Doppler Study 11/30/17 00:00 CONCLUSION: 1. Minimal plaque with no evidence of stenosis in the internal carotid arteries. 2. Mild elevation of the right external carotid artery velocity of questionable clinical significance. Myocardial Perfusion Scan Nuc Med 11/30/17 00:00 CONCLUSION: 1. Normal wall motion and calculated ejection fraction. 2. No fixed or reversible wall defect to suggest ischemia or infarction. Chest X-Ray 11/30/17 02:56 CONCLUSION: No acute cardiopulmonary process. Head CT 12/01/17 00:00 CONCLUSION: Liver Ultrasound 12/01/17 00:00 CONCLUSION: Discharge Plan - Discharge Disposition Patient Disposition: 01 Discharge Home - Discharge Condition Condition: Stable - Discharge Order Discharge Orders: Discharge Order (Routine); Ordered 12/03/17 Ordered By: Fadi Singleton - Physicians Team Primary Care Provider: Primary Care Physici,No Attending Provider: Fadi Singleton Other Providers: Drew Boland MD ; Carol Ann James MD ; Fadi Singleton MD
--- NOTE | 2017-12-03 09:45 | MG ---
cc: Drew Collins MD EEG NUMBER: [id number] INDICATION: A 37-year-old man anxiety, syncopal episode. MEDICATIONS: Folic acid, Ativan, Haldol. DESCRIPTION: A 12 Hz, 60 microvolt symmetric posterior rhythm is seen. The recording overall is synchronous and symmetric. Photic stimulation is performed without significant posterior driving. No hemisphere asymmetries are noted. No epileptiform or seizure activity seen. Leg jerking was noted, but only correlated with muscle artifact. Hyperventilation was performed without significant change in the background. IMPRESSION: Normal awake and sleep electroencephalogram. No evidence for a focal or diffuse abnormality. Drew Collins MD DJM/DL , 09:31 AM , 09:34 AM
--- NOTE | 2017-12-03 12:52 | P.PNPSY ---
Subjective Remarks: The patient was seen today for psychiatric reevaluation. EMR was reviewed. Documentation from Dr. Boland assessment was also reviewed. The case was discussed with Dr. Odonnell personally and also with nurse in charge. On my evaluation I find a patient that is calm, cooperative, pleasant. The patient states that he understands that he has been drinking more alcohol than what he should, "but I have learned my lesson". The patient reports good mood, denies anhedonia, denies hopelessness, denies helplessness, he denies worthlessness, denies suicidal and homicidal ideation, he denies visual and auditory hallucinations at the moment. There is no sign or symptoms of alcohol withdrawal present. No paranoia, no loosening of associations, no agitation, no aggressive behavior, no delusions are present. Mental Status Examination Appearance: Appropriate Consciousness: Alert Orientation: x4 Motor Activity: Normal gait, Other (Motor exam as above) Speech: Unremarkable Language: Adequate Fund of Knowledge: Adequate Attention and Concentration: Adequate Memory: Unremarkable Mood: Appropriate Affect: Irritable Thought Process & Associations: Intact Thought Content: Appropriate, Delusional Hallucination Type: None Delusion Type: None Suicidal Ideation: No Suicidal Plan: No Suicidal Intention: No Homicidal Ideation: No Homicidal Plan: No Homicidal Intention: No Insight: Adequate Judgment: Adequate Assessment and Plan - Assessment (1) Delirium tremens Code(s): F10.231 - Alcohol dependence with withdrawal delirium Status: Acute - Plan Plan: On my psychiatric evaluation today the patient is calm, cooperative, pleasant, logical, coherent and relevant. The patient does not display to or exhibit any neuropsychiatric symptoms or require an immediate psychiatric intervention. The patient denies depression, denies anxiety, denies herbert and psychosis. He denies suicidal enemas ideation. He denies visual and auditory hallucinations. He seems to me that he is initially described psychosis was most probably the result of alcohol withdrawal. Brief supportive psychotherapy, psychoeducation and motivation provided. He does not meet criteria for involuntary psychiatric admission at the moment. Suarez act will be lifted Justification for Continued Inpatient Stay: No admission is indicated at this moment
== END 2017-12-03 13:15 | disposition home or self-care (01) ==
LOC: NEPE 01:26 → NEDA 01:26 → NEPHCDU 13:55 → HIMC 12-01 16:52
PROVIDERS: ADMIT Internal Medicine; ATTEND Internal Medicine